=== PATIENT | male | born 1980 | race Caucasian/White ===

== ENCOUNTER 2017-04-22 10:51 | Emergency (ER) | payer MEDICAID ==
[~2017-04-22] VITALS: Ht 175.3 cm; Wt 97.5 kg
[~2017-04-22 10:51] MED LIST: ANTIVERT GENERI25 MG PO; ETODOLAC400 MG PO; FLEXERIL10 MG PO; KETOCONAZOLE2% TP; NOMEDS XX
--- OUTSIDE RECORDS SUMMARY | 2017-04-22 11:03 | External Medical Summary Rpt ---
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 T VISIT HIGH/URGE NT SEVERITY EMERGENCY 55266 MELISSA VELOZ 5 5 EMERGENCY DEPARTMEN T VISIT PHYSICIAN HIGH/URGE S NT SEVERITY EMERGENCY 95044 ST [place] 4 4 JAVID [facility] DEPARTMEN MED CTR T VISIT MODERATE SEVERITY EMERGENCY 76749 ST [facility] DEPT 4 4 JAVID VISIT MED CTR HIGH SEVERITY& THREAT FUNJ EMERGENCY 35832 SELPH SCO SELPH SCO 3 3 DEPARTMEN T VISIT HIGH/URGE NT SEVERITY OFFICE 44425 QUATKEMEY QUATKEMEY OUTPATIEN 3 3 ER BRA ER BRA T VISIT 15 MINUTES OFFICE 32222 QUATKEMEY QUATKEMEY OUTPATIEN 2 2 ER BRA ER BRA T VISIT [address] [facility] 1 1 JAVID DEPARTMEN MED CTR T VISIT MODERATE SEVERITY OFFICE 48515 MEKA ROBBINS OUTPATIEN 1 1 Donald HERRERA AN T NEW 30 MDPLC MINUTES OFFICE [address] ST AUDIE OUTPATIEN 1 1 JAVID ER BRA T VISIT [address]YSIC[address] [facility] [facility] - 1 1 JAVID OUTPATIEN AI T OFFICE [address] ST AUDIE OUTPATIEN 1 1 JAVID ER BRA T VISIT [address] - 1 1 JAVID OUTPATIEN AI T OFFICE [address] ST AUDIE OUTPATIEN 1 1 JAVID ER BRA T VISIT 15 PHYSICIAN MINUTES S EMERGENCY 33401 ST CECILIA 0 0 JAVID [facility] DEPARTMEN MED CTR T VISIT MODERATE SEVERITY OFFICE 83445 ST ELIU OUTPATIEN 0 0 JAVID YUSUF T VISIT 15 PHYSICIAN MINUTES S OFFICE 74547 [facility] OUTPATIEN 0 0 Y T VISIT HOSPITAL 10 INC. [facility] UNIVERSIT - 0 0 Y OUTPATI HOSPITAL T INC. OFFICE [address] ST [place] OUTPATIEN 0 0 JAVIDSHAHLA ALVARENGA E T VISIT 15 PHYSICIAN MINUTES S OFFICE 654[address] ST ELIU OUTPATIEN 0 0 JAVID COLETTE E T VISIT 15 PHYSICIAN MINUTES [facility] ST - 0 0 JAVID OUTPATIEN T MEDICALCE NTER OFFICE 31907 ST ELIU OUTPATIEN 0 0 JAVID COLETTE E T VISIT 25 PHYSICIAN MINUTES S OFFICE 20356 [facility] NOWAK OUTPATIEN 0 0 MEDICAL COLETTE E T VISIT GROUP 15 MINUTES OFFICE 10875 SUMM[facility]O NOWAK OUTPATIEN 0 0 MEDICAL COLETTE E T VISIT GROUP 15 MINUTES OFFICE 10548 SUMMCONRADO NOWAK OUTPATIEN 0 0 MEDICAL [place]LETTE E T VISIT GROUP 15 MINUTES OFFICE 08839 [facility] HARTIG, OUTPATIEN 0 0 MEDICAL COLETT[place] E T VISIT GROUP [address] - 0 0 [facility] T EMERGENCY [address] MANCILLAIE Valeria. 0 0 JAVID PILI [facility] MED CTR T VISIT HIGH/URGE NT SEVERITY HOSPITAL ST - 9 9 [facility] T OFFICE 98096 [place] JESSICA NOWAK 9 9 MEDICAL COLETTE E T VISIT GROUP 15 MINUTES EMERGENCY 62514 [facility], 9 9 JAVID Roy [facility] MED CTR T VISIT HIGH/URGE NT SEVERITY HOSPITAL ST - 9 9 [facility] MEDICALCE NTER OFFICE 94779 HAND SOMMERKAM CONSULTAT 9 9 SURGERY P, T G ION SPECIALIS NEW/ESTAB TS, INC PATIENT 40 MIN OFFICE 38393 [facility] 9 9 MEDICAL COLETTE E T VISIT GROUP 15 MINUTES OFFICE 74311 [place] JESSICA NOWAK 9 9 MEDICAL COLETTE E T VISIT GROUP [address] [facility] 9 9 JAVID [facility] CTR SANSTRAWNDEB T VISIT HIGH/URGE NT SEVERITY EMERGENCY 74508 ST [place], DEPT 9 9 JAVID Shaw VISIT MED CTR HIGH SEVERITY& THREAT FUNCJ OFFICE 47184 [facility] 9 9 MEDICAL COLETTE E T VISIT GROUP 15 MINUTES OFFICE 04840 JESSICA ACHARYA 9 9 MEDICAL COLETTE E T VISIT GROUP [address] - 9 9 [facility] T OFFICE 28082 JESSICA ACHARYA 9 9 MEDICAL COLETTE E T VISIT GROUP [address] MESSINA, 9 9 JAVID Roy [facility] MED CTR T VISIT HIGH/URGE NT SEVERITY EMERGENCY 46895 ST RO[place], 9 9 JAVID Burrell [facility] MED CTR T VISIT MODERATE SEVERITY OFFICE 18258 [facility] JESSICA NOWAK 9 9 MEDICAL COLETTE Leyva VISIT GROUP 15 MINUTES OFFICE 64692 SUMMJESSICA CORREA 9 9 MEDICAL COLETTE Leyva VISIT GROUP 15 MINUTES
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
--- OUTSIDE RECORDS SUMMARY | 2017-04-22 11:08 | External Medical Summary Rpt ---
Demographics Home Phone Preferred Language Serbian Marital Status Unknown Faith Affiliation Unknown Race Unknown Ethnic Group Unknown Author Author , Organization [employer] Address Unknown Phone Unavailable Purpose Continuity of Care Document - 02-18-2014 through 2016 Immunization Name Date Route CVX Reacti Commen Provid Is Given on t er Refuse d PPV23 33 Histor [id number] No 2013 uscula ical r Inform ation - Source Unspec ified
--- OUTSIDE RECORDS SUMMARY | 2017-04-22 11:08 | External Medical Summary Rpt ---
Demographics Home Phone Preferred Language Upper Sorbian Marital Status Unknown Holiness Affiliation Unknown Race Unknown Ethnic Group Unknown Author Author , Organization [employer] Address Unknown Phone Unavailable Purpose Continuity of Care Document - 02-18-2014 through 2016 Immunization Name Date Route CVX Reacti Commen Provid Is Given on t er Refuse d PPV23 33 Histor [id number] No 2013 uscula ical r Inform ation - Source Unspec ified
--- OUTSIDE RECORDS SUMMARY | 2017-04-22 11:09 | External Medical Summary Rpt ---
Author Author DERIC Gayle, DERIC Gayle Organization [employer] Address Unknown Phone Unavailable
[2017-04-22] MEDS ORDERED: FLEXERIL10 MG PO (11:26)
[2017-04-22] MEDS ORDERED: PERCOGESIC EXTR1 TAB PO (11:26)
--- NOTE | 2017-04-22 11:33 | Urgent Treatment Center Report ---
See Addendum History of Present Issue Date/Time Seen by Provider 04/22/17 1106 Visit Reason Pt arrived:Walked Presenting Problem:PT STATES LIFTING AC UNIT BY HIMSELF YESTERDAY AND NOW HAS LEFT SHOULDER PAIN. Location if Accident: Onset of symptoms date/time:04/21/17/ or onset unknown for:MEDICAL HX UNKNOWN Have you (or family members/close friends) recently traveled outside the [place]? N If Yes, where/when: Have you had exposure to infectious disease within the past month? TB? Other? Specify: Patient state that yesterday he was lifting an air conditioning unit out of truck by himself when he lifted it up and placed it on his left shoulder. States that he felt something pull and then was unable to use shoulder or raise up the arm without feeling pain. States that he can touch the shoulder and it does not hurt but when he tries to lift the arm he has pain. ALLERGIES Coded Allergies: erythromycin base (11/25/16) Home Medications Reported Medications No Known Home Medications History Medical History General CAD? No Angina: No MT: No Hypertension? Yes Hyperlipidemia? No CHF? No DVT? No PE? No COPD? No Asthma? No Anemia? No GERD? No Gastric ulcers? No GI Bleed? No Hernia? No Thyroid Problems? No Hypothyroidism? No CVA? No Seizures? No Diabetes? No Renal Insuffiency? No UTI? No Stones? No BPH? No GB Disease: No Nephritic Syndrome? No Asplenia? No Hepatitis? No Sickle Cell Disease? No Arthritis? No Migraines? No Cataracts? No Glaucoma? No MRSA? No HIV? No TB? No Anxiety? No Depression? No Cancer? No More? No Immunization HX DT/Tetanus Unknown Surgical Hx Previous Surgery?Y RIGHT ELBOW Appendectomy NASAL RIGHT CARPAL TUNNEL Family History Family HX Hypertension Yes Social History Smoking Hx Smoker: Current Every Day Smoker Tobacco: Yes Type Cigarettes Packs/day < 1 Pack Alcohol Alcohol: No Review of Systems All Other Systems Reviewed and Negative Comment Pain in left shoulder area after lifting a heavy ac unit yesterday by himself and feeling something pull/pop in the left shoulder. Able to move fingers and as long as he does not move the arm pain is tolerable. State that when he goes to raise the arm pain is "horrible" Physical Exam Vital Signs Vital Signs Date Time Temp Pulse Resp B/P Pulse O2 O2 Flow FiO2 Ox Delivery Rate 04/22 1102 97.7 67 18 144/86 100 General Appearance normal appearance, WD/WN, no apparent distress Respiratory Status Yes: trachea midline, chest symmetrical, non tender chest. No: respiratory distress. Cardiovascular normal exam, regular rate/rhythm, no peripheral edema, no gallop Extremities Pain in left shoulder area since yesterday after lifting heavy object. Pain worsens with movement or lifting up of shoulder, good cap refill, peripheral pulses noted, no discoloration or swelling, able to move fingers and hand States that feels like muscle is tight Neurologic alert, professional security officer II-XII nml as tested, normal exam, no motor/sensory deficits, oriented x 3 Medical Decision Making LABS/Meds/Orders Pt receiving controlled substance in ED? No Results/Orders Current Medication Orders Sig/Jay Start time Last Medication Dose Route Stop Time Status Admin Orphenadrine Citrate 0 .STK-MED ONE 04/22 1118 DC .ROUTE Orphenadrine Citrate 60 MG ONCE ONE 04/22 1115 DC 04/22 IM 04/22 1116 1120 Orders Procedure Date/time Status [id number] VIEWS 04/22 1102 Active XRAY/CT/US XRAY/CT/US XRAY shoulder XR interpretation by reviewed by me Xray Results no fracture seen Departure Departure Time of Disposition 1116 Disposition DC Home or Self Care(routine) Clinical Impression Primary Impression: Left shoulder strain Qualifiers: Encounter type: initial encounter Qualified Code: S46.912A - Strain of unspecified muscle, fascia and tendon at shoulder and upper arm level, left arm, initial encounter Condition STABLE Referrals COLETTE NOWAK (PCP): 3 Days-Call Office Shaq ANTON,Benjie ASKEW MD, BUTCH SONI Patient Instructions DI for Shoulder Pain Additional Instructions *RICE, Rest the extremity, Ice 15-20 minutes 3-4 times daily, Compress- wear the jing wrap as discussed as much as possible to help reduce swelling and pain, Elevate the extremity when at rest *Elevate when resting *Ibuprofen 600-800mg every 6-8 hours as needed for pain an inflammation. If need something more can take Tylenol in between doses of Ibuprofen to help Immediately follow up for new or worsening of symptoms, or no noticeable improvement over the next 3-5 days Use sling and tomorrow call either Orthopedic of your choice Dr Chavarria or Dr Askew for further evaluation and treatment Discharge Counseling Counseled pt/family regarding diagnosis, test results, medications/RX, home care, follow up needs Prescriptions Current Visit Scripts Cyclobenzaprine Hcl (Flexeril) 10 MG PO TID #15 TAB ACETAMINOPHEN/DIPHENHYDRAMINE (Percogesic Extra Str Caplet) 1 TAB PO Q6HP PRN pain #20 TAB at 1133
[2017-04-22 11:36] VITALS: BP 144/86
--- NOTE | 2017-04-22 11:42 | RADIOLOGY REPORT PS360 ---
[id number] VIEWS HISTORY: Left shoulder pain PAIN/LIFTED AC UNIT BY HIMSELF ORDERING PHYSICIAN: DANNY ESPINOZA APRN PATIENT AGE: 36 years COMPARISON: None FINDINGS: No fracture or dislocation. No lytic or blastic change. There is normal mineralization. The joint spaces are well-preserved. No significant degenerative/arthritic changes. No erosive changes evident. IMPRESSION: Negative, no acute finding
== END 2017-04-22 11:37 | disposition home or self-care (01) ==
LOC: UTC 10:51
DX: S46.912A Strain of unspecified muscle, fascia and tendon at shoulder and upper arm level, left arm, initial encounter (principal); I10 Essential (primary) hypertension; Z72.0 Tobacco use; X50.0XXA Overexertion from strenuous movement or load, initial encounter